=== PATIENT | male | born 1950 | race Caucasian/White ===

== ENCOUNTER → 2017-06-23 | Outpatient (CLI) | payer MEDICARE, OTHER ==
[2017-06-23 09:50] LABS: HEMATOCRIT 43.7 % (37.9-51.0); HGB HCT DIFFERENCE 1.3; MEAN CORPUSCULAR HEMOGLOBIN 29.9 pg (27.0-33.4); MEAN CORPUSCULAR HGB CONC 34.3 g/dL (32.0-36.0); MEAN CORPUSCULAR VOLUME 87 fl (80-97); WHITE BLOOD COUNT 5.7 10^3/uL (4.0-10.5)
[2017-06-23 10:48] LABS: ALANINE AMINOTRANSFERASE 28 U/L (21-72); ALBUMIN 4.2 g/dL (3.5-5.0); ALKALINE PHOSPHATASE 61 U/L (38-126); ANION GAP 11 (5-19); ASPARTATE AMINO TRANSFERASE 18 U/L (17-59); BILIRUBIN,DIRECT 0.3 mg/dL (0.0-0.4); BLOOD UREA NITROGEN 21 mg/dL (7-20); CALCIUM 9.2 mg/dL (8.4-10.2); CARBON DIOXIDE 26 mmol/L (22-30); CHLORIDE 108 mmol/L (98-107); CREATININE RESULT 1.06 mg/dL (0.52-1.25); GLUCOSE 93 mg/dL (75-110); MAGNESIUM 2.2 mg/dL (1.6-2.3); POTASSIUM 4.9 mmol/L (3.6-5.0); SODIUM 144.9 mmol/L (137-145); TOTAL PROTEIN 7.1 g/dL (6.3-8.2)
[2017-06-23 12:06] LABS: CHOLESTEROL 167.48 mg/dL (0-200); Direct HDL 39 mg/dL (>40); TRIGLYCERIDES 139 mg/dL (<150)
[2017-06-23 12:17] LABS: DIRECT LDL 104 mg/dL (<100)
== END ==
LOC: OD 08:50
PROVIDERS: ATTEND Internal Medicine Cardiovascular Disease
DX: E78.00 Pure hypercholesterolemia, unspecified (principal); Z79.899 Other long term (current) drug therapy
CPT/HCPCS: 36415; 80048; 80061; 80076; 83735; 84443; 85027

== ENCOUNTER → 2017-11-08 | Outpatient (CLI) | payer MEDICARE, OTHER ==
[2017-11-08 08:53] LABS: HEMATOCRIT 43.7 % (37.9-51.0); HGB HCT DIFFERENCE 1.3; MEAN CORPUSCULAR HEMOGLOBIN 29.5 pg (27.0-33.4); MEAN CORPUSCULAR HGB CONC 34.2 g/dL (32.0-36.0); MEAN CORPUSCULAR VOLUME 86 fl (80-97); RED BLOOD COUNT 5.06 10^6/uL (4.35-5.55); RED CELL DISTRIBUTION WIDTH 13.2 % (11.5-14.0); WHITE BLOOD COUNT 7.4 10^3/uL (4.0-10.5)
[2017-11-08 09:18] LABS: ALANINE AMINOTRANSFERASE 32 U/L (21-72); ALBUMIN 4.5 g/dL (3.5-5.0); ALKALINE PHOSPHATASE 72 U/L (38-126); ANION GAP 12 (5-19); ASPARTATE AMINO TRANSFERASE 19 U/L (17-59); BILIRUBIN,DIRECT 0.3 mg/dL (0.0-0.4); BILIRUBIN,TOTAL 0.9 mg/dL (0.2-1.3); BLOOD UREA NITROGEN 23 mg/dL (7-20); CALCIUM 9.7 mg/dL (8.4-10.2); CARBON DIOXIDE 23 mmol/L (22-30); CHLORIDE 111 mmol/L (98-107); CREATININE RESULT 1.36 mg/dL (0.52-1.25); GLUCOSE 101 mg/dL (75-110); MAGNESIUM 2.1 mg/dL (1.6-2.3); POTASSIUM 4.8 mmol/L (3.6-5.0); SODIUM 145.6 mmol/L (137-145); TOTAL PROTEIN 7.6 g/dL (6.3-8.2)
[2017-11-08 10:42] LABS: CHOLESTEROL 139.03 mg/dL (0-200); CREATINE KINASE 54 U/L (55-170); Direct HDL 41 mg/dL (>40); TRIGLYCERIDES 93 mg/dL (<150); VLDL CHOLESTEROL 18.6 mg/dL (10-31)
[2017-11-08 10:53] LABS: DIRECT LDL 77 mg/dL (<100)
== END ==
LOC: OD 07:42
PROVIDERS: ATTEND Internal Medicine Cardiovascular Disease
DX: E78.00 Pure hypercholesterolemia, unspecified (principal); R25.2 Cramp and spasm; Z79.899 Other long term (current) drug therapy
CPT/HCPCS: 36415; 80048; 80061; 80076; 82550; 83735; 85027

== ENCOUNTER → 2017-11-29 | Outpatient (CLI) | payer MEDICARE, OTHER ==
[2017-11-29 09:57] LABS: ANION GAP 9 (5-19); BLOOD UREA NITROGEN 26 mg/dL (7-20); CALCIUM 9.8 mg/dL (8.4-10.2); CARBON DIOXIDE 29 mmol/L (22-30); CHLORIDE 107 mmol/L (98-107); GLUCOSE 94 mg/dL (75-110); POTASSIUM 4.6 mmol/L (3.6-5.0); SODIUM 144.8 mmol/L (137-145)
== END ==
LOC: OD 07:56
PROVIDERS: ATTEND Internal Medicine Cardiovascular Disease
DX: N18.9 Chronic kidney disease, unspecified (principal)
CPT/HCPCS: 36415; 80048

== ENCOUNTER → 2018-04-04 | Outpatient (CLI) | payer MEDICARE, OTHER ==
[2018-04-04 09:03] LABS: ALANINE AMINOTRANSFERASE 35 U/L (21-72); ALBUMIN 4.2 g/dL (3.5-5.0); ALKALINE PHOSPHATASE 57 U/L (38-126); ANION GAP 10 (5-19); ASPARTATE AMINO TRANSFERASE 23 U/L (17-59); BILIRUBIN,DIRECT 0.3 mg/dL (0.0-0.4); BILIRUBIN,TOTAL 1.2 mg/dL (0.2-1.3); BLOOD UREA NITROGEN 15 mg/dL (7-20); CALCIUM 9.4 mg/dL (8.4-10.2); CARBON DIOXIDE 28 mmol/L (22-30); CHLORIDE 109 mmol/L (98-107); CHOLESTEROL 134.87 mg/dL (0-200); GLUCOSE 102 mg/dL (75-110); POTASSIUM 4.9 mmol/L (3.6-5.0); SODIUM 147.4 mmol/L (137-145); TRIGLYCERIDES 93 mg/dL (<150)
[2018-04-04 09:14] LABS: DIRECT LDL 70 mg/dL (<100)
== END ==
LOC: OD 07:31
PROVIDERS: ATTEND Internal Medicine Cardiovascular Disease
DX: E78.00 Pure hypercholesterolemia, unspecified (principal); Z79.899 Other long term (current) drug therapy; I10 Essential (primary) hypertension
CPT/HCPCS: 36415; 80048; 80061; 80076

== ENCOUNTER → 2019-01-26 | Outpatient (CLI) | payer MEDICARE, OTHER ==
[2019-01-26 09:05] LABS: HEMATOCRIT 42.9 % (37.9-51.0); HEMOGLOBIN 14.6 g/dL (13.5-17.0); MEAN CORPUSCULAR HEMOGLOBIN 29.2 pg (27.0-33.4); MEAN CORPUSCULAR VOLUME 86 fl (80-97); PLATELET COUNT 160 10^3/uL (150-450); RED BLOOD COUNT 5.01 10^6/uL (4.35-5.55); RED CELL DISTRIBUTION WIDTH 13.2 % (11.5-14.0)
[2019-01-26 09:32] LABS: ALANINE AMINOTRANSFERASE 32 U/L (21-72); ALBUMIN 4.2 g/dL (3.5-5.0); ALKALINE PHOSPHATASE 66 U/L (38-126); ANION GAP 11 (5-19); ASPARTATE AMINO TRANSFERASE 20 U/L (17-59); BILIRUBIN,DIRECT 0.2 mg/dL (0.0-0.4); BILIRUBIN,TOTAL 1.3 mg/dL (0.2-1.3); BLOOD UREA NITROGEN 16 mg/dL (7-20); CALCIUM 9.5 mg/dL (8.4-10.2); CARBON DIOXIDE 28 mmol/L (22-30); CHLORIDE 106 mmol/L (98-107); CHOLESTEROL 137.06 mg/dL (0-200); GLUCOSE 100 mg/dL (75-110); POTASSIUM 4.4 mmol/L (3.6-5.0); SODIUM 144.5 mmol/L (137-145); TOTAL PROTEIN 7.1 g/dL (6.3-8.2); TRIGLYCERIDES 117 mg/dL (<150)
[2019-01-26 09:44] LABS: DIRECT LDL 78 mg/dL (<100)
== END ==
LOC: LAB 08:46
PROVIDERS: ATTEND Internal Medicine Cardiovascular Disease
DX: E78.00 Pure hypercholesterolemia, unspecified (principal); I10 Essential (primary) hypertension; Z79.899 Other long term (current) drug therapy
CPT/HCPCS: 36415; 80048; 80061; 80076; 85027

== ENCOUNTER → 2019-04-03 | Outpatient (CLI) | payer MEDICARE, OTHER ==
[2019-04-03 08:59] LABS: CHOLESTEROL 98.56 mg/dL (0-200); TRIGLYCERIDES 47 mg/dL (<150)
[2019-04-03 09:11] LABS: DIRECT LDL 53 mg/dL (<100)
== END ==
LOC: LAB 08:39
PROVIDERS: ATTEND Internal Medicine Cardiovascular Disease
DX: E78.00 Pure hypercholesterolemia, unspecified (principal)
CPT/HCPCS: 36415; 80061

== ENCOUNTER → 2019-08-29 | Outpatient (CLI) | payer MEDICARE, OTHER ==
[2019-08-29 07:42] LABS: CHOLESTEROL 101.07 mg/dL (0-200); TRIGLYCERIDES 62 mg/dL (<150)
[2019-08-29 07:53] LABS: DIRECT LDL 42 mg/dL (<100)
[2019-08-29 17:43] LABS: ALBUMIN 4.1 g/dL (3.5-5.0); ALKALINE PHOSPHATASE 65 U/L (38-126); ANION GAP 9 (5-19); ASPARTATE AMINO TRANSFERASE 19 U/L (17-59); BILIRUBIN,DIRECT 0.1 mg/dL (0.0-0.4); BILIRUBIN,TOTAL 1.4 mg/dL (0.2-1.3); BLOOD UREA NITROGEN 21 mg/dL (7-20); CALCIUM 9.3 mg/dL (8.4-10.2); CARBON DIOXIDE 26 mmol/L (22-30); CHLORIDE 105 mmol/L (98-107); CREATINE KINASE 61 U/L (55-170); GLUCOSE 96 mg/dL (75-110); POTASSIUM 4.8 mmol/L (3.6-5.0); TOTAL PROTEIN 7.2 g/dL (6.3-8.2)
== END ==
LOC: LAB 07:00
PROVIDERS: ATTEND Internal Medicine Cardiovascular Disease
DX: E78.00 Pure hypercholesterolemia, unspecified (principal)
CPT/HCPCS: 36415; 80048; 80061; 80076; 82550

== ENCOUNTER → 2019-11-16 | Outpatient (CLI) | payer MEDICARE, OTHER ==
[2019-11-16 08:01] LABS: ALBUMIN 4.3 g/dL (3.5-5.0); ALKALINE PHOSPHATASE 64 U/L (38-126); ASPARTATE AMINO TRANSFERASE 30 U/L (17-59); BILIRUBIN,TOTAL 1.3 mg/dL (0.2-1.3); CHOLESTEROL 127.39 mg/dL (0-200); TOTAL PROTEIN 7.4 g/dL (6.3-8.2); TRIGLYCERIDES 130 mg/dL (<150)
[2019-11-16 08:12] LABS: DIRECT LDL 62 mg/dL (<100)
== END ==
LOC: LAB 07:10
PROVIDERS: ATTEND Physician Assistant
DX: E78.00 Pure hypercholesterolemia, unspecified (principal); R94.5 Abnormal results of liver function studies; Z79.899 Other long term (current) drug therapy
CPT/HCPCS: 36415; 80061; 80076

== ENCOUNTER → 2020-01-02 | Outpatient (CLI) | payer MEDICARE, OTHER ==
[2020-01-02 07:54] LABS: ALBUMIN 4.3 g/dL (3.5-5.0); ALKALINE PHOSPHATASE 62 U/L (38-126); ANION GAP 8 (5-19); ASPARTATE AMINO TRANSFERASE 24 U/L (17-59); BILIRUBIN,TOTAL 1.1 mg/dL (0.2-1.3); BLOOD UREA NITROGEN 16 mg/dL (7-20); CALCIUM 9.2 mg/dL (8.4-10.2); CARBON DIOXIDE 26 mmol/L (22-30); CHLORIDE 107 mmol/L (98-107); CHOLESTEROL 114.02 mg/dL (0-200); CREATINE KINASE 87 U/L (55-170); GLUCOSE 102 mg/dL (75-110); TOTAL PROTEIN 7.2 g/dL (6.3-8.2); TRIGLYCERIDES 93 mg/dL (<150)
[2020-01-02 08:05] LABS: DIRECT LDL 60 mg/dL (<100)
== END ==
LOC: LAB 07:24
PROVIDERS: ATTEND Internal Medicine Cardiovascular Disease
DX: I10 Essential (primary) hypertension (principal); E78.00 Pure hypercholesterolemia, unspecified; R25.2 Cramp and spasm; Z79.899 Other long term (current) drug therapy
CPT/HCPCS: 36415; 80048; 80061; 80076; 82550

== ENCOUNTER 2020-07-01 09:58 | Emergency (ER) | payer MEDICARE, OTHER ==
[2020-07-01] MEDS ORDERED: DIPH/PERTUSS(ACELL)/TETANUS VAC/PF 0.5 ML SYR (>=10YO) IM ONE ×2 (10:41→15:00)
--- NOTE | 2020-07-01 10:41 | ER Document Report ---
ED Medical Screen (RME) - General Chief Complaint: Laceration Stated Complaint: FACIAL LACERATION Time Seen by Provider: 07/01/20 10:37 Primary Care Provider: MOUNA WATKINS PA-C [Primary Care Provider] - Follow up as needed Mode of Arrival: Ambulatory Information source: Patient Notes: 69-year-old male presented to ED for 7 cm laceration to the left side of his face. He states he was doing a rollup door when there was a spring in the latch and came out and cut his face. He does have a significant laceration he did have bleed blood all down his face but it has stopped bleeding at this time. We have put a moist dressing on it. Will order his tetanus immunization at this time. I have greeted and performed a rapid initial assessment of this patient. A comprehensive ED assessment and evaluation of the patient, analysis of test results and completion of medical decision making process will be conducted by an additional ED providers. TRAVEL OUTSIDE OF THE [place] IN LAST 30 DAYS: No - Related Data Allergies/Adverse Reactions: bacitracin [From Cortisporin] Allergy (Verified 07/01/20 10:37) hydrocortisone [From Cortisporin] Allergy (Verified 07/01/20 10:37) neomycin [From Cortisporin] Allergy (Verified 07/01/20 10:37) polymyxin B [From Cortisporin] Allergy (Verified 07/01/20 10:37) Physical Exam - Vital signs Vitals: Temp Pulse Resp BP Pulse Ox 98.0 F 76 16 148/91 H 99 07/01/20 10:03 07/01/20 10:03 07/01/20 10:03 07/01/20 10:03 07/01/20 10:03 Course - Vital Signs Vital signs: Temp Pulse Resp BP Pulse Ox 98.0 F 76 16 148/91 H 99 07/01/20 10:03 07/01/20 10:03 07/01/20 10:03 07/01/20 10:03 07/01/20 10:03 Doctor's Discharge - Discharge Referrals: MOUNA WATKINS PA-C [Primary Care Provider] - Follow up as needed
[2020-07-01] MEDS ORDERED: LIDOCAINE 1.5%/EPINEPHRINE INJ-PF 30 ML SDV INJ ONE (14:43)
[2020-07-01] MEDS ORDERED: LIDOCAINE 1%/EPINEPHRINE INJ 20 ML VIAL INJ ONE (14:44)
[2020-07-01] MEDS ORDERED: LIDOCAINE 1%/EPINEPHRINE INJ 20 ML VIAL ONE (14:56)
--- NOTE | 2020-07-01 16:09 | ER Document Report ---
ED General - General Chief Complaint: Laceration Stated Complaint: FACIAL LACERATION Time Seen by Provider: 07/01/20 10:37 Primary Care Provider: MOUNA WATKINS PA-C [PHYSICIAN [employer] OPERATOR] - Follow up as needed Mode of Arrival: Ambulatory Notes: 69-year-old male presenting today with right-sided cheek laceration occurred around 8:00 this morning. States he was working on a metal house and was moving a door and then he the bracket on the door hit the side of his face and then the spring hit him on the face. He takes a baby aspirin daily. His last tetanus was 10 to 11 years ago. He denies any additional symptoms at this time. TRAVEL OUTSIDE OF THE [place] IN LAST 30 DAYS: No - Related Data Allergies/Adverse Reactions: bacitracin [From Cortisporin] Allergy (Verified 07/01/20 10:37) hydrocortisone [From Cortisporin] Allergy (Verified 07/01/20 10:37) neomycin [From Cortisporin] Allergy (Verified 07/01/20 10:37) polymyxin B [From Cortisporin] Allergy (Verified 07/01/20 10:37) Past Medical History - General Information source: Patient - Social History Smoking Status: Former Smoker Frequency of alcohol use: None Drug Abuse: None Family History: Reviewed & Not Pertinent - Past Medical History Cardiac Medical History: Reports: Hx Hypercholesterolemia GI Medical History: Reports: Hx Gastroesophageal Reflux Disease Review of Systems - Review of Systems Constitutional: No symptoms reported EENT: No symptoms reported Cardiovascular: No symptoms reported Respiratory: No symptoms reported Gastrointestinal: No symptoms reported Genitourinary: No symptoms reported Musculoskeletal: No symptoms reported Skin: See HPI Hematologic/Lymphatic: No symptoms reported Neurological/Psychological: No symptoms reported Physical Exam - Vital signs Vitals: Temp Pulse Resp BP Pulse Ox 98.0 F 76 16 148/91 H 99 07/01/20 10:03 07/01/20 10:03 07/01/20 10:03 07/01/20 10:03 07/01/20 10:03 Interpretation: Hypertensive - Notes Notes: Adult General: GENERAL: Alert, interacts well. No acute distress HEAD: Normocephalic, atraumatic EYES: Pupils equal, round and reactive to light. Extraocular movements intact. ENT: Oral mucosa moist, tongue midline. Oropharynx unremarkable. Airway patent. Nares patent. No laceration to cheek wall. NECK: Full range of motion. Supple. Trachea midline. GENITOURINARY: Deferred EXTREMITIES: Moves all 4 extremities spontaneously. No edema, normal radial and dorsal pedis pulses bilaterally. No cyanosis. BACK: Moves all extremities with full range of motion. NEUROLOGICAL: Alert and oriented x3. Normal speech. Cranial nerves II through XII grossly intact. Strength 5/ 5 in all extremities. PSYCH: Normal affect, normal mood. SKIN: 7cm superficial laceration along the right cheek. No oral mucosa involvement. Good sensation, bleeding controlled, no noted foreign bodies. Course - Re-evaluation Re-evalutation: 07/01/20 16:18 The wound is a curved 7 cm laceration along the right cheek. The wound was copiously irrigated with normal saline and Shur cleanz. The wound was explored for foreign bodies and none were found. The wound does not extend into the oral cavity or muscle. No damage to the facial nerve or the parotid gland identified. Patient has good sensation along his cheek as well as appropriate motor function. The wound was prepped and draped in the normal sterile fashion. The wound was anesthetized using 1% lidocaine and epi. The edges were reapproximated using 9, 5-0 ethilon sutures. Bleeding was well controlled and the patient tolerated the procedure well. I discussed return precautions with the patient to include redness, pus, worsening swelling, or the development of new symptoms. He can use tylenol and ice to help alleviate swelling. Instructed to have sutures removed in 3-5 days. This can be done in the ER, an urgent care or by his primary care. Patient acknowledges and verbalizes understanding of instructions and plan. All questions answered. Patient was called to confirm if he has had an allergic reaction to bacitracin, if he has what the allergic reaction was. Patient reports he has not had an allergic reaction to bacitracin before in the past, but only to cortisporin when it was applied to his ear. He states they must have misunderstood him when he was confirming his allergies. I discussed with patient is he does develop signs of an allergic reaction to return back to the emergency department immediately. Patient verbally acknowledges understanding. 07/01/20 16:28 - Vital Signs Vital signs: Temp Pulse Resp BP Pulse Ox 98.1 F 72 18 132/70 H 98 07/01/20 16:23 07/01/20 16:23 07/01/20 16:23 07/01/20 16:23 07/01/20 16:23 Procedures - Laceration/Wound Repair Right Face Wound length (cm): 7 Wound's Depth, Shape: Superficial Laceration pre-procedure: Shur-Clens applied Anesthetic type: 1% Lidocaine w/epi Wound explored: Clean Wound Repaired With: Sutures Suture Size/Type: 5:0, Ethilon Discharge - Discharge Clinical Impression: Laceration Condition: Stable Disposition: HOME, SELF-CARE Instructions: Antibiotic Ointment Protection ([facility]), Laceration Care ([facility]), Soap Cleansing ([facility]), Tetanus Immunization Given ([facility]) Additional Instructions: Please return to your primary doctor, the ED, or an urgent care in 3-5 days for suture removal. Return immediately if you develop spreading redness around the wound, pus from the wound, swelling, worsening pain, or a fever of >100.4. Please use tylenol for pain relief. You may use ice applied no more than 15 minutes at a time to decrease swelling. Keep the area clean and dry. Wash gently with soap and water twice daily and cover with antibiotic ointment. Referrals: MOUNA WATKINS PA-C [PHYSICIAN [employer]S OPERATOR] - Follow up as needed
[2020-07-01 16:24] VITALS: BP 132/70
== END 2020-07-01 16:24 | disposition home or self-care (01) ==
LOC: ER 09:58
DX: S01.411A Laceration without foreign body of right cheek and temporomandibular area, initial encounter (principal); W26.8XXA Contact with other sharp object(s), not elsewhere classified, initial encounter; Y92.009 Unspecified place in unspecified non-institutional (private) residence as the place of occurrence of the external cause; E78.00 Pure hypercholesterolemia, unspecified; Z79.82 Long term (current) use of aspirin; Z23 Encounter for immunization; Z88.3 Allergy status to other anti-infective agents
CPT/HCPCS: 99283; 90471; 90715; 12014; J3490

== ENCOUNTER → 2020-07-09 | Outpatient (CLI) | payer MEDICARE, OTHER ==
[2020-07-09 08:20] LABS: ALBUMIN 4.2 g/dL (3.5-5.0); ALKALINE PHOSPHATASE 57 U/L (38-126); ANION GAP 7 (5-19); ASPARTATE AMINO TRANSFERASE 25 U/L (17-59); BILIRUBIN,TOTAL 0.9 mg/dL (0.2-1.3); BLOOD UREA NITROGEN 13 mg/dL (7-20); CALCIUM 8.9 mg/dL (8.4-10.2); CARBON DIOXIDE 28 mmol/L (22-30); CHLORIDE 107 mmol/L (98-107); CHOLESTEROL 105.28 mg/dL (0-200); GLUCOSE 96 mg/dL (75-110); POTASSIUM 4.7 mmol/L (3.6-5.0); TOTAL PROTEIN 7.1 g/dL (6.3-8.2); TRIGLYCERIDES 105 mg/dL (<150)
[2020-07-09 08:30] LABS: DIRECT LDL 53 mg/dL (<100)
== END ==
LOC: OD 07:08
PROVIDERS: ATTEND Internal Medicine Cardiovascular Disease
DX: E78.00 Pure hypercholesterolemia, unspecified (principal); I10 Essential (primary) hypertension; Z79.899 Other long term (current) drug therapy
CPT/HCPCS: 36415; 80048; 80061; 80076

== ENCOUNTER → 2020-11-25 | Outpatient (CLI) | payer MEDICARE, OTHER ==
[2020-11-25 08:39] LABS: ALBUMIN 4.1 g/dL (3.5-5.0); ALKALINE PHOSPHATASE 61 U/L (38-126); ANION GAP 6 (5-19); ASPARTATE AMINO TRANSFERASE 24 U/L (17-59); BILIRUBIN,DIRECT 0.1 mg/dL (0.0-0.4); BILIRUBIN,TOTAL 1.1 mg/dL (0.2-1.3); BLOOD UREA NITROGEN 19 mg/dL (7-20); CALCIUM 9.4 mg/dL (8.4-10.2); CARBON DIOXIDE 29 mmol/L (22-30); CHLORIDE 106 mmol/L (98-107); CHOLESTEROL 118.86 mg/dL (0-200); GLUCOSE 95 mg/dL (75-110); POTASSIUM 4.7 mmol/L (3.6-5.0); TOTAL PROTEIN 7.1 g/dL (6.3-8.2); TRIGLYCERIDES 104 mg/dL (<150)
[2020-11-25 08:49] LABS: DIRECT LDL 53 mg/dL (<100)
== END ==
LOC: OD 07:28
PROVIDERS: ATTEND Physician Assistant
DX: E78.00 Pure hypercholesterolemia, unspecified (principal); I10 Essential (primary) hypertension; Z79.899 Other long term (current) drug therapy
CPT/HCPCS: 36415; 80048; 80061; 80076